=== PATIENT | male | born 1985 | race Caucasian/White ===

== ENCOUNTER 2017-11-14 03:44 | Emergency (ER) | payer MEDICAID, OTHER ==
[~2017-11-14] VITALS: Ht 177.8 cm; Wt 73.5 kg
[2017-11-14 03:45] VITALS: BP 121/69
[2017-11-14] MEDS ORDERED: BUPR1FIL5 SL (03:56)
== END 2017-11-14 04:59 | disposition home or self-care (01) ==
LOC: ED 04:53
DX: R51 Headache (principal); Z87.891 Personal history of nicotine dependence
CPT/HCPCS: 99281